=== PATIENT | female | born 1945 | race African-American/Black ===

== ENCOUNTER 2021-04-29 12:38 | Emergency (ER) | payer MEDICARE, OTHER ==
[~2021-04-29] VITALS: Ht 175.3 cm; Wt 82.0 kg
[2021-04-29] MEDS ORDERED: KETOROLAC 15MG/ML VIAL IV ONE (14:45)
[2021-04-29 15:11] LABS: CHLORIDE 104 mEq/L (98-107)
[2021-04-29 18:06] LABS: BASOPHILS % 0.5 % (0.0-2.0); EOSINOPHILS % 1.4 % (0.0-5.0); HEMATOCRIT. 39.2 % (36.0-48.0); HEMOGLOBIN. 12.8 g/dL (12.0-16.0); LYMPHOCYTES % 32.5 % (20.0-50.0); MEAN CORPUSCULAR HEMOGLOBIN 29.5 pg (28.0-32.0); MEAN CORPUSCULAR VOLUME 90.4 fL (81.0-99.0); MEAN PLATELET VOLUME 8.9 fl (7.4-10.4); NEUTROPHILS % 57.6 % (40.0-76.0); PLATELET 176 x1000/uL (130-400); RED BLOOD CELL COUNT 4.34 mill/uL (4.2-5.4); RED CELL DISTRIBUTION WIDTH 14.9 % (11.6-14.6)
[2021-04-29] MEDS: ONDANSETRON HCL 4MG/2ML INJ IV ONE ×2 (19:39→19:42)
[2021-04-29] MEDS ORDERED: TOPUD PO (21:42)
[2021-04-29] MEDS ORDERED: IBUP-2028 MT (21:42)
[2021-04-29 21:55] VITALS: BP 159/96
== END 2021-04-29 21:59 | disposition home or self-care (01) ==
LOC: ER 13:28
DX: S42.402A Unspecified fracture of lower end of left humerus, initial encounter for closed fracture (principal); I10 Essential (primary) hypertension; Z88.0 Allergy status to penicillin; Z98.890 Other specified postprocedural states; W01.0XXA Fall on same level from slipping, tripping and stumbling without subsequent striking against object, initial encounter; Y93.89 Activity, other specified; Y92.89 Other specified places as the place of occurrence of the external cause; Y99.8 Other external cause status
CPT/HCPCS: 29105; 36415; 71045; 71250; 73030; 73060; 73080; 73090; 73110; 73130; 73521; 74176; 80053; 85025; 96374; 99285; J1885; J2405